=== PATIENT | female | born 1945 | race Caucasian/White ===

== ENCOUNTER 2025-08-08 07:10 | Emergency (ER) | payer MEDICARE ==
[~2025-08-08] VITALS: Ht 152.4 cm; Wt 60.0 kg
[2025-08-08 08:15] LABS: HEMATOCRIT. 43.9 % (36.0-48.0); HEMOGLOBIN. 14.8 g/dL (12.0-16.0); MEAN PLATELET VOLUME 8.4 fl (7.4-10.4); PLATELET 245 x1000/uL (130-400); RED BLOOD CELL COUNT 4.85 mill/uL (4.2-5.4); RED CELL DISTRIBUTION WIDTH 13.7 % (11.6-14.6)
[2025-08-08 08:35] LABS: CREATININE 0.8 mg/dL (0.6-1.0)
[2025-08-08 08:36] LABS: UREA NITROGEN BLOOD 14 mg/dL (9-23)
[2025-08-08 08:37] LABS: ASPARTATE AMINOTRANSFERASE 21 IU/L (<34); BILIRUBIN DIRECT 0.2 mg/dL (<=3.0); PROTEIN TOTAL 7.4 g/dL (6.0-8.3); TROPONIN I HIGH SENSITIVITY 10 ng/L (3.0-34)
[2025-08-08 08:38] LABS: BILIRUBIN TOTAL 0.6 mg/dL (0.1-1.0)
[2025-08-08 08:42] VITALS: PULSE 77; RESP 18; O2SAT 95
[2025-08-08] MEDS: IPRATROPIUM/ALBUTEROL 0.5-3(2.5)MG/3ML NEB HHN ONE (08:42)
[2025-08-08] MEDS ORDERED: ALBU18HF2 IH (10:03)
[2025-08-08 10:17] LABS: BAND% 3.0 % (1.0-6.0); EOSINOPHILS % MANUAL 8.0 % (0.0-5.0); LYMPHOCYTES % MANUAL 29.0 % (20.0-60.0); MONOCYTES % MANUAL 8.0 % (2.0-8.0); NEUTROPHILS % MANUAL 52.0 % (45.0-75.0); PLATELET ESTIMATE NORMAL
[2025-08-08 10:32] VITALS: BP 133/67; PULSE 79; RESP 18; TEMP 36.8; O2SAT 96
== END 2025-08-08 10:34 | disposition home or self-care (01) ==
LOC: ER 07:10 → EDBEDREQ 07:48 → CANBEDREQ 10:08 → ER 10:34
DX: R06.02 Shortness of breath (principal); R09.02 Hypoxemia; Z20.822 Contact with and (suspected) exposure to COVID-19; Z79.899 Other long term (current) drug therapy
CPT/HCPCS: 36415; 71045; 80048; 80076; 83880; 84484; 85025; 93005; 94070; 94640; 94664; 99284